=== PATIENT | female | born 1990 | race Two or more races ===

== ENCOUNTER 2025-10-07 11:48 | Emergency (ER) | payer OTHER ==
[2025-10-07 12:58] LABS: Glucose, Urine (Dipstick) Negative (Negative); Leukocyte Negative (Negative); Protein, Urine (Dipstick) 30 mg/dL (Neg-Trace); Specific Gravity, Urine 1.015 (1.005-1.030)
[2025-10-07 13:06] LABS: CAUTI Indications for Culture Dysuria,urgency,freq; Sperm/HPF Rare HPF (None Seen); WBC/HPF 0-3 HPF (0-3)
[2025-10-07 13:08] LABS: Urine Culture Reflex No No
[2025-10-08 13:51] LABS: Chlam.trachomatis by PCR,Urine Not Detected (NotDetected); GC N.gonorrhoeae PCR,UrineVOID Not Detected (NotDetected)
== END 2025-10-07 13:30 | disposition home or self-care (01) ==
LOC: NAV ERS 11:48
DX: O23.593 Infection of other part of genital tract in pregnancy, third trimester (principal); Z3A.33 33 weeks gestation of pregnancy
CPT/HCPCS: 81001; 87210; 87480; 87491; 87510; 87591; 87660; 99283